=== PATIENT | female | born 1960 | race Native Hawaiian/Other Pacific Islander ===

== ENCOUNTER 2020-09-30 05:57 | Emergency (ER) | payer OTHER ==
[~2020-09-30] VITALS: Ht 157.5 cm; Wt 71.2 kg
[2020-09-30 07:42] VITALS: BP 108/74; TEMP 98.7
== END 2020-09-30 07:42 | disposition home or self-care (01) ==
LOC: ED 05:57
PROC: 2W3SX1Z Immobilization of Right Foot using Splint (ICD-10-PCS; principal; 2020-09-30)
DX: S92.334A Nondisplaced fracture of third metatarsal bone, right foot, initial encounter for closed fracture (principal); W17.89XA Other fall from one level to another, initial encounter; Y92.89 Other specified places as the place of occurrence of the external cause
CPT/HCPCS: 96372; 99283; J1885